=== PATIENT | female | born 1985 | race Two or more races ===

== ENCOUNTER 2022-08-09 15:10 | Inpatient (IN) | payer MEDICAID ==
[~2022-08-09] VITALS: Ht 160 cm; Wt 76.0 kg
[2022-08-09] MEDS ORDERED: PHISODERM TOP SOLN 240ML BTL TOP PRN (16:15)
[2022-08-09] MEDS ORDERED: LIDOCAINE 2%HCL (LOCAL ANESTH.) INJ 20ML MDV IJ PRN (16:15)
[2022-08-09] MEDS ORDERED: PENICILLIN G POT 5MIL/D5 50ML 50 ML IV ONE (16:15)
[2022-08-09] MEDS ORDERED: WITCH HAZEL-GLYCERIN PAD TOP PRN (16:15)
[2022-08-09] MEDS ORDERED: BUTORPHANOL TARTRATE 2 MG/1 ML VIAL IV PRN ×2 (16:15)
[2022-08-09] MEDS ORDERED: LACT. RINGERS/OXYTOCIN 20UNITS 500 ML IV ONE ×2 (16:15→16:45)
[2022-08-09] MEDS ORDERED: DERMOPLAST 60ML BOTTLE TOP PRN (16:15)
[2022-08-09] MEDS ORDERED: PROMETHAZINE HCL 25 MG/ML 1ML IV PRN (16:15)
[2022-08-09 16:41] LABS: Basophils # (auto) 0 10 ^3/uL (0-0.2); Basophils % (auto) 0.4 % (0.0-2.0); Eosinophils # (auto) 0 10 ^3/uL (0-0.8); Eosinophils % (auto) 0.4 % (0.0-7.0); Hematocrit 38.9 % (36.0-46.0); Hemoglobin 13.6 g/dL (12.2-16.2); Lymphocytes # (auto) 1.5 10 ^3/uL (0.4-5.4); Mean Corpuscular Volume 88.5 fL (80.0-100.0); Monocytes # (auto) 0.4 10 ^3/uL (0-1.3); Monocytes % (auto) 4.7 % (0.0-12.0); Neutrophils % (auto) 77.5 % (37.0-80.0); Nucleated Red Blood Cells % 0.2 %; Red Blood Cells 4.39 10^6/uL (4.0-5.20); Red Cell Distribution Width 14.6 % (11.8-14.3)
[2022-08-09 16:45] LABS: Urine Bacteria FEW /hpf (None Seen); Urine Blood Negative /uL (Negative); Urine Mucus FEW (None Seen); Urine Specific Gravity 1.018 (1.001-1.035); Urine WBC 74 /hpf (0 - 5)
[2022-08-09 17:02] LABS: INR 0.91 (0.9-1.15); Partial Thromboplastin Time 28.2 sec (24.6-33.4)
[2022-08-09 17:09] LABS: Alcohol, Urine < 3.0 mg/dL (0-10); Amphetamine Screen, Urine NEGATIVE (NEGATIVE); Barbiturate Scree,Urine NEGATIVE (NEGATIVE); Benzodiazephine Screen, Urine NEGATIVE (NEGATIVE); Cannabinoid Screen, Urine NEGATIVE (NEGATIVE); Cocaine Screen, Urine NEGATIVE (NEGATIVE); Opiate Scree,Urine NEGATIVE (NEGATIVE); Phencyclidine Screen, Urine NEGATIVE (NEGATIVE)
[2022-08-09 17:09] LABS: Potassium 3.4 mmol/L (3.5-5.1)
[2022-08-09 17:12] LABS: BUN/Creatinine Ratio 29.5; Bilirubin, Total 0.4 mg/dL (0.2-1.0)
[2022-08-09] MEDS: LACTATED RINGER'S 1,000 ML IV SCH (17:30)
[2022-08-09] MEDS ORDERED: PENICILLIN G POTASSIUM 2,500,000 UNITS in D5W 5% 50 ML IV SCH (20:30)
[2022-08-09 23:00] VITALS: BP 119/69
[2022-08-09] MEDS ORDERED: DIPHENOXYLATE W/ATROPINE 2.5 MG TAB PO PRN (23:30)
[2022-08-09] MEDS ORDERED: ACETAMINOPHEN 325 MG TAB PO PRN (23:30)
[2022-08-09] MEDS ORDERED: IBUPROFEN 600 MG TAB PO PRN (23:30)
[2022-08-10] VITALS (7 sets, daily range): BP systolic 95–122; BP diastolic 49–78
[2022-08-10] MEDS: LACTATED RINGER'S 1,000 ML IV SCH (03:30)
[2022-08-10 08:06] LABS: RPR Non Reactive (Non Reactive)
[2022-08-10 09:07] LABS: Rubella Antibodies, IgG 8.66 index (Immune >0.99)
[2022-08-10] MEDS ORDERED: IBU600T PO (09:38)
[2022-08-10] MEDS ORDERED: PREN-96 PO (09:38)
[2022-08-10] MEDS ORDERED: DOCU100C10 PO (09:38)
[2022-08-10] MEDS ORDERED: ACET325T10 PO (09:38)
[2022-08-10] MEDS ORDERED: DOCUSATE SOD 100 MG CAP PO SCH (22:00)
[2022-08-11 03:02] VITALS: BP 108/57
[2022-08-11 07:15] VITALS: BP 110/68
[2022-08-11 11:10] VITALS: BP 112/65
== END 2022-08-11 13:03 | disposition home or self-care (01) | DRG 560 ==
LOC: LDRP 15:10 → OBSVTOIN 16:00 → INTOOBSV 16:05 → LDRP 18:29
PROVIDERS: ADMIT Obstetrics & Gynecology; ATTEND Obstetrics & Gynecology
PROC: 10E0XZZ Delivery of Products of Conception, External Approach (ICD-10-PCS; principal; 2022-08-09)
PROC: 3E033VJ Introduction of Other Hormone into Peripheral Vein, Percutaneous Approach (ICD-10-PCS; 2022-08-09)
DX: O80 Encounter for full-term uncomplicated delivery (principal); Z37.0 Single live birth; Z20.822 Contact with and (suspected) exposure to COVID-19; Z3A.39 39 weeks gestation of pregnancy
CPT/HCPCS: 36415; 59025; 59409; 76805; 80053; 80307; 81001; 81002; 85025; 85610; 85730; 86592; 86703; 86762; 86850; 86900; 86901; 87340; 87426; 94760; 96360; 96361; 96365; 96366; G0378; J2540; J2590; J7060